=== PATIENT | female | born 1995 | race Caucasian/White ===

== ENCOUNTER 2019-10-18 18:34 | Emergency (ER) | payer SELFPAY ==
[2019-10-18] MEDS ORDERED: ACETAMINOPHEN 325 MG TABLET PO ONE (19:09)
--- NOTE | 2019-10-18 19:10 | ER Document Report ---
ED Medical Screen (RME) - General Chief Complaint: Abdominal Pain Stated Complaint: ABDOMINAL CRAMPING Time Seen by Provider: 10/18/19 19:00 Notes: Patient is a G1, P0, 24-year-old female who presents to the emergency department with a chief complaint of pelvic pain. Patient states that she has had on and off pelvic pain for the past few weeks. States that she ended up having pain in her left lower quadrant. Was referred to the emergency department by [facility]. States that she had an ultrasound done 2 days ago. States that her last menstrual cycle was September 03. States that she is approximately 5 weeks . She has had some initial work-up done by [facility], but has not seen SECURITY TECHNICIAN at this point. Exam: Tender left lower quadrant. I have greeted and performed a rapid initial assessment of this patient. A comprehensive ED assessment and evaluation of the patient, analysis of test results and completion of medical decision making process will be conducted by an additional ED providers. - Related Data Allergies/Adverse Reactions: No Known Allergies Allergy (Verified 10/18/19 18:55) Physical Exam - Vital signs Vitals: Temp Pulse Resp BP Pulse Ox 98.2 F 121 H 18 116/60 100 10/18/19 18:38 10/18/19 18:38 10/18/19 18:38 10/18/19 18:38 10/18/19 18:38 Course - Vital Signs Vital signs: Temp Pulse Resp BP Pulse Ox 98.2 F 121 H 18 116/60 100 10/18/19 18:38 10/18/19 18:38 10/18/19 18:38 10/18/19 18:38 10/18/19 18:38
[2019-10-18 19:35] LABS: ABSOLUTE LYMPHOCYTES (AUTO) 2.5 10^3/uL (0.5-4.7); ABSOLUTE MONOCYTES (AUTO) 0.6 10^3/uL (0.1-1.4); ABSOLUTE NEUT (AUTO) 4.1 10^3/uL (1.7-8.2); BASOPHILS % (AUTO) 0.7 % (0-2); EOSINOPHILS % (AUTO) 0.4 % (0-6); HEMATOCRIT 36.9 % (36.0-47.0); HEMOGLOBIN 12.9 g/dL (12.0-15.5); LYMPHOCYTES % (AUTO) 33.9 % (13-45); MEAN CORPUSCULAR HEMOGLOBIN 29.5 pg (27.0-33.4); MEAN CORPUSCULAR HGB CONC 34.8 g/dL (32.0-36.0); MEAN CORPUSCULAR VOLUME 85 fl (80-97); MONOCYTES % (AUTO) 8.6 % (3-13); PLATELET COUNT 221 10^3/uL (150-450); RED BLOOD COUNT 4.36 10^6/uL (3.72-5.28); RED CELL DISTRIBUTION WIDTH 13.8 % (11.5-14.0); SEGMENTED NEUTROPHILS % (AUTO) 56.4 % (42-78); TOTAL CELLS COUNTED % (AUTO) 100 %; WHITE BLOOD COUNT 7.3 10^3/uL (4.0-10.5)
[2019-10-18 19:52] LABS: ALBUMIN 4.3 g/dL (3.5-5.0); ALKALINE PHOSPHATASE 67 U/L (38-126); ANION GAP 6 (5-19); ASPARTATE AMINO TRANSFERASE 19 U/L (14-36); BILIRUBIN,TOTAL 0.3 mg/dL (0.2-1.3); BLOOD UREA NITROGEN 5 mg/dL (7-20); CALCIUM 9.3 mg/dL (8.4-10.2); CARBON DIOXIDE 25 mmol/L (22-30); CHLORIDE 106 mmol/L (98-107); GLUCOSE 86 mg/dL (75-110); POTASSIUM 3.9 mmol/L (3.6-5.0); TOTAL PROTEIN 7.7 g/dL (6.3-8.2)
[2019-10-18 20:11] LABS: APPEARANCE,URINE SLIGHTLY-CLOUDY; BILIRUBIN,URINE NEGATIVE (NEGATIVE); COLOR,URINE YELLOW; GLUCOSE, URINE NEGATIVE (NEGATIVE); KETONES,URINE NEGATIVE (NEGATIVE); LEUKOCYTE ESTERASE,URINE NEGATIVE (NEGATIVE); NITRITE,URINE NEGATIVE (NEGATIVE); PROTEIN,URINE NEGATIVE (NEGATIVE); URINE SPECIFIC GRAVITY 1.014; UROBILINOGEN,URINE NEGATIVE mg/dL (<2.0)
--- NOTE | 2019-10-18 21:10 | RADIOLOGY REPORT (SQ) ---
US PELVIS HISTORY: Left lower quadrant pain. COMPARISON: None. TECHNIQUE: Grayscale, color Doppler, and spectral Doppler ultrasound images of the pelvis were obtained. FINDINGS: The uterus is anteverted and measures 8.4 x 4.9 x 6.0 cm. The cervix is 2.8 cm in length. There is an intrauterine gestational sac with a mean sac diameter of 0.54 cm corresponding to 5 weeks 2 days. There is a small adjacent subchorionic hematoma measuring 1.5 cm. The left ovary measures 3.4 x 4.0 cm and contains a 2 cm corpus luteum cyst. The right ovary is not visualized. Normal color Doppler blood flow in the left ovary. IMPRESSION: 1. Intrauterine gestational sac of 5 weeks 2 days. No yolk sac or pole is seen at this time. Findings may represent early . Recommend short-term follow-up ultrasound imaging. 2. Small adjacent subchorionic hematoma; attention on follow-up imaging is suggested. 3. Small left ovarian corpus luteum cyst, for which no follow-up imaging is needed.
--- NOTE | 2019-10-18 22:49 | ER Document Report ---
ED GI/ - General Chief Complaint: Abdominal Pain Stated Complaint: ABDOMINAL CRAMPING Time Seen by Provider: 10/18/19 19:00 Mode of Arrival: Ambulatory Information source: Patient Notes: 24-year-old female patient presenting to the emergency department concern for left lower quadrant abdominal pain in the setting of . Patient reports she is approximately 5 weeks . She states she has been having intermittent left lower quadrant abdominal pain for the last few weeks. She states today got worse. This is her first . She is planning on terminating the on Sunday. She denies any vaginal bleeding, abnormal vaginal discharge, fever, chills, nausea, vomiting or diarrhea. - Related Data Allergies/Adverse Reactions: No Known Allergies Allergy (Verified 10/18/19 18:55) Past Medical History - General Information source: Patient - Social History Smoking Status: Former Smoker Frequency of alcohol use: None Drug Abuse: None Family History: Reviewed & Not Pertinent Patient has homicidal ideation: No - Medical History Medical History: Negative Surgical Hx: Negative - Immunizations Immunizations up to date: Yes Review of Systems - Review of Systems Constitutional: No symptoms reported EENT: No symptoms reported Cardiovascular: No symptoms reported Respiratory: No symptoms reported Gastrointestinal: No symptoms reported Genitourinary: No symptoms reported Female Genitourinary: Other - Left pelvic pain Musculoskeletal: No symptoms reported Skin: No symptoms reported Hematologic/Lymphatic: No symptoms reported Neurological/Psychological: No symptoms reported Physical Exam - Vital signs Vitals: Temp Pulse Resp BP Pulse Ox 98.2 F 121 H 18 116/60 100 10/18/19 18:38 10/18/19 18:38 10/18/19 18:38 10/18/19 18:38 10/18/19 18:38 - Notes Notes: PHYSICAL EXAMINATION: GENERAL: Well-appearing, well-nourished and in no acute distress. HEAD: Atraumatic, normocephalic. EYES: Pupils equal round and reactive to light, extraocular movements intact, conjunctiva are normal. ENT: Nares patent, oropharynx clear without exudates. Moist mucous membranes. NECK: Normal range of motion, supple without lymphadenopathy LUNGS: Breath sounds clear to auscultation bilaterally and equal. No wheezes rales or rhonchi. HEART: Regular rate and rhythm without murmurs ABDOMEN: Soft, nontender, nondistended abdomen. No guarding, no rebound. No masses appreciated. Female : Tenderness in the left pelvic region, no CVA tenderness. Musculoskeletal: Normal range of motion, no pitting or edema. No cyanosis. NEUROLOGICAL: Cranial nerves grossly intact. Normal speech, normal gait. Normal sensory, motor exams PSYCH: Normal mood, normal affect. SKIN: Warm, Dry, normal turgor, no rashes or lesions noted. Course - Re-evaluation Re-evalutation: 10/18/19 23:22 Laboratory 10/18/19 10/18/19 10/18/19 19:12 19:12 19:12 WBC 7.3 RBC 4.36 Hgb 12.9 Hct 36.9 MCV 85 MCH 29.5 MCHC 34.8 RDW 13.8 Plt Count 221 Lymph % (Auto) 33.9 [place]asta % (Auto) 8.6 Eos % (Auto) 0.4 Baso % (Auto) 0.7 Absolute Neuts (auto) 4.1 Absolute Lymphs (auto) 2.5 Absolute Monos (auto) 0.6 Absolute Eos (auto) 0.0 Absolute Basos (auto) 0.0 Seg Neutrophils % 56.4 Sodium 136.9 L Potassium 3.9 Chloride 106 Carbon Dioxide 25 Anion Gap 6 BUN 5 L Creatinine 0.61 Est GFR ( Amer) > 60 Est GFR (MDRD) Non-Af > 60 Glucose 86 Calcium 9.3 Total Bilirubin 0.3 Direct Bilirubin 0.0 Neonat Total Bilirubin Not Reportable Neonat Direct Bilirubin Not Reportable Neonat Indirect Bili Not Reportable AST 19 ALT 14 Alkaline Phosphatase 67 Total Protein 7.7 Albumin 4.3 Lipase 64.7 Beta HCG, Quant 3028.20 H Total Beta HCG POSITIVE Urine Color Urine Appearance Urine pH Ur Specific Eastman Urine Protein Urine Glucose (UA) Urine Ketones Urine Blood Urine Nitrite Urine Bilirubin Urine Urobilinogen Ur Leukocyte Esterase Urine WBC (Auto) Urine RBC (Auto) U Hyaline Cast (Auto) Urine Bacteria (Auto) Squamous Epi Cells Auto Urine Mucus (Auto) Urine Ascorbic Acid Blood Type O POSITIVE Rhogam Indicated RHOGAM NOT INDICATED 10/18/19 19:12 WBC RBC Hgb Hct MCV MCH MCHC RDW Plt Count Lymph % (Auto) [place] % (Auto) Eos % (Auto) Baso % (Auto) Absolute Neuts (auto) Absolute Lymphs (auto) Absolute Monos (auto) Absolute Eos (auto) Absolute Basos (auto) Seg Neutrophils % Sodium Potassium Chloride Carbon Dioxide Anion Gap BUN Creatinine Est GFR ( Amer) Est GFR (MDRD) Non-Af Glucose Calcium Total Bilirubin Direct Bilirubin Neonat Total Bilirubin Neonat Direct Bilirubin Neonat Indirect Bili AST ALT Alkaline Phosphatase Total Protein Albumin Lipase Beta HCG, Quant Total Beta HCG Urine Color YELLOW Urine Appearance SLIGHTLY-CLOUDY Urine pH 9.0 Ur Specific Eastman 1.014 Urine Protein NEGATIVE Urine Glucose (UA) NEGATIVE Urine Ketones NEGATIVE Urine Blood NEGATIVE Urine Nitrite NEGATIVE Urine Bilirubin NEGATIVE Urine Urobilinogen NEGATIVE Ur Leukocyte Esterase NEGATIVE Urine WBC (Auto) 1 Urine RBC (Auto) 1 U Hyaline Cast (Auto) 1 Urine Bacteria (Auto) TRACE Squamous Epi Cells Auto 1 Urine Mucus (Auto) RARE Urine Ascorbic Acid NEGATIVE Blood Type Rhogam Indicated Transvaginal US 10/18/19 19:07 IMPRESSION: 1. Intrauterine gestational sac of 5 weeks 2 days. No yolk sac or pole is seen at this time. Findings may represent early . Recommend short-term follow-up ultrasound imaging. 2. Small adjacent subchorionic hematoma; attention on follow-up imaging is suggested. 3. Small left ovarian corpus luteum cyst, for which no follow-up imaging is needed. Labs unremarkable. Transvaginal ultrasound does show an intrauterine gestational sac 5 weeks 2 days, no yolk sac or pole. Left ovarian cyst noted. This is likely the cause of patient's pain. Patient appears well, nontoxic, she states that her pain has actually eased off since being in the emergency department. She will be discharged home at this time. - Vital Signs Vital signs: Temp Pulse Resp BP Pulse Ox 98.1 F 68 16 120/65 100 10/18/19 23:18 10/18/19 23:18 10/18/19 23:18 10/18/19 23:18 10/18/19 23:18 - Laboratory Result Diagrams: 10/18/19 19:12 10/18/19 19:12 Laboratory results interpreted by me: 10/18/19 19:12 Sodium 136.9 L BUN 5 L Beta HCG, Quant 3028.20 H Discharge - Discharge Clinical Impression: Ovarian cyst Qualifiers: Laterality: left Qualified Code(s): N83.202 - Unspecified ovarian cyst, left side Condition: Stable Disposition: HOME, SELF-CARE Additional Instructions: Ovarian Cyst Your examination shows the presence of an ovarian cyst. This is a ball of fluid attached to the ovary. Ovarian cysts in women of child-bearing age are usually innocent. However, the cyst may cause pain when it grows or bursts. An innocent ovarian cyst will usually go away by itself. When the cyst becomes painful, you should rest. Pain medication may be required. Some women find a hot water bottle soothing. The pain usually resolves within one or two days. After menopause, an ovarian cyst may mean a tumor, and requires more aggressive evaluation -- usually surgery is recommended to remove or biopsy the cyst. A very large cyst requires evaluation at any age. Most cysts (even the innocent ones) require follow-up examination. Call the doctor or return at any time if the pain increases significantly, if you become faint, or if you experience vaginal bleeding. The ultrasound shows that you have an ovarian cyst on the left ovary. This should not cause any issue with your upcoming procedure. A copy of the ultrasound was given to you for your provider at [facility]'s review. Return to the emergency department any new or worsening complaints.
[2019-10-18] MEDS ORDERED: HYDROCODONE/ACETAMINOPHEN 5-325 MG (6 TAB/ER DISP) PO PRN (23:10)
[2019-10-18 23:19] VITALS: BP 120/65
== END 2019-10-18 23:25 | disposition home or self-care (01) ==
LOC: ER 18:34
DX: O34.81 Maternal care for other abnormalities of pelvic organs, first trimester (principal); N83.202 Unspecified ovarian cyst, left side; R10.32 Left lower quadrant pain; Z3A.01 Less than 8 weeks gestation of pregnancy
CPT/HCPCS: 36415; 76817; 80053; 81001; 83690; 84702; 85025; 86900; 86901; 93976; 99284